=== PATIENT | female | born 1990 | race Caucasian/White ===

== ENCOUNTER → 2016-10-08 | Outpatient (CLI) | payer BC ==
--- NOTE | 2016-10-08 16:56 | Diagnostic Imaging Report ---
EXAMINATION: Lumbar spine. INDICATION: Low back pain. FINDINGS: AP, lateral and spot lateral views were obtained. There are no prior studies available for comparison. The lateral view shows the vertebral body heights and alignment to be within normal limits. The intervertebral disc spaces are well maintained. There is no fracture or acute bony abnormality evident. There is no sign of a paraspinal mass. The sacroiliac joints are symmetrical and within normal limits. IMPRESSION: 1. There is no acute bony abnormality of the lumbar spine. 2. If there is clinical concern regarding spinal stenosis or nerve root encroachment, then MRI will be recommended for further study. Dictated by: Dictated on workstation # [id number]
== END ==
LOC: RAD 13:23
PROVIDERS: ATTEND Nurse Practitioner Family
DX: M54.5 Low back pain (principal)
CPT/HCPCS: 72100

== ENCOUNTER → 2017-02-05 | Outpatient (CLI) | payer BC ==
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
== END ==
LOC: RAD 16:36
PROVIDERS: ATTEND Nurse Practitioner Family
DX: S09.90XA Unspecified injury of head, initial encounter (principal); R42 Dizziness and giddiness; R11.0 Nausea; Y09 Assault by unspecified means; Y99.8 Other external cause status
CPT/HCPCS: 70450